=== PATIENT | male | born 1995 | race Caucasian/White ===

== ENCOUNTER → 2019-03-03 | Outpatient (CLI) | payer OTHER ==
[~2019-03-03] MED LIST: METHACHOLINE KIT (J7674) INH ONE
--- NOTE | 2019-03-03 07:45 | PFTRPT ---
Height: 70.00 Inches Weight: 190.00 Lbs BSA: 2.04 Diagnosis: DYSPNEA, UNSPECIFIED DATE OF PROCEDURE: 03/03/2019 ORDERED BY: Cesar Wei Spirometry: Excellent technical quality. Forced vital capacity normal. FEV1 generally in proportion. Obstructive index is, therefore, normal. Flow Volume Loop: Expiratory limb of the flow volume loop suggests reasonable flow rates. Lung Volumes: Total lung capacity normal. Residual volume in proportion. Diffusing Capacity: Diffusing capacity normal. Hemoglobin: No hemoglobin available for correction. Airway Mechanics: Airway resistance minimally elevated with concomitant decrease in airway conductance. IMPRESSION: Probably normal study. MTDD
--- NOTE | 2019-03-03 08:46 | PFTRPT ---
Height: 70.00 Inches Weight: 190.00 Lbs BSA: 2.04 Diagnosis: DYSPNEA, UNSPECIFIED DATE OF PROCEDURE: 03/03/2019 ORDERED BY: Cesar Wei INTERPRETATION: Excellent technical quality. Under protocol, methacholine was administered. At a dose of 2.5 mg (13.875 CDUs), a 34% decline in the FEV1 was noted. PC of 0.71 is significant. Flow rates did return to baseline post bronchodilator administration. IMPRESSION: Positive methacholine challenge study. MTDD
== END ==
LOC: M CARPUL 06:51
PROVIDERS: ATTEND Emergency Medicine
DX: R06.00 Dyspnea, unspecified (principal)
CPT/HCPCS: 94010; 94070; 94726; 94729; J7674